=== PATIENT | male | born 1960 | race Two or more races ===

== ENCOUNTER 2016-08-27 08:57 | Emergency (ER) | payer OTHER ==
--- NOTE | 2016-08-27 09:47 | ER Document Report ---
ED General - General Chief Complaint: Rash Stated Complaint: RASH Time seen by provider: 09:42 Mode of Arrival: Ambulatory Information source: Patient, Relative Notes: 56-year-old male who reports developing some itching on his feet about 4 days ago and then last night began breaking out in an itching red rash all over his body. He family recall no new foods soaked detergent shampoo exposure to any chemicals new close report patient has not been bitten by anything. They recall no prior episodes like this. They report that his physician [facility] recently reduced his level thyroxine dose but he has had no other medication changes. The patient denies pain anywhere complains only of itching all over now. One point he was telling family that he felt as if he was having difficulty breathing but he denies that now. He denies fever, chills, nausea, vomiting, cough, shortness of breath, earache, sore throat, or swelling to extremities. Physical Exam: General: Alert, appears well. HEENT: Normocephalic. Atraumatic. PERRLA. Extraocular movements intact. Oropharynx clear. No lesions noted no stridor horses drooling Neck: Supple. Non-tender. No JVD no adenopathy Respiratory: No respiratory distress. Clear and equal breath sounds bilaterally. Cardiovascular: Regular rate and rhythm. Abdominal: Normal Inspection. Soft, non-tender. No distension. Normal Bowel Sounds. Back: Non-tender. No deformity or step off. Extremities: Moves all four extremities. Upper extremities: Normal inspection. Non-tender. Normal color. Normal ROM. Normal temperature. Lower extremities: Normal inspection. Non-tender. No edema. Normal color. Normal ROM. Normal temperature. Neurological: Speech clear mentation normal Psychological: Normal affect. Normal Mood. Skin: Warm. Dry. Patient has diffuse hives over her arms and legs chest abdomen and back. There are no petechiae or purpura. There is no new Kolsky sign. TRAVEL OUTSIDE OF THE [place] IN LAST 30 DAYS: No - Related Data Allergies/Adverse Reactions: No Known Allergies Allergy (Verified 08/27/16 09:14) Past Medical History - Social History Smoking Status: Never Smoker Chew tobacco use (# tins/day): No Frequency of alcohol use: None Drug Abuse: None Family History: Reviewed & Not Pertinent Patient has suicidal ideation: No Patient has homicidal ideation: No - Past Medical History Cardiac Medical History: Reports: Hx Hypertension Endocrine Medical History: Reports: Hx Diabetes Mellitus Type 2, Hx Hypothyroidism Renal/ Medical History: Denies: Hx Peritoneal Dialysis Review of Systems - Review of Systems Constitutional: denies: Chills, Fever EENT: denies: Ear pain, Throat pain Cardiovascular: denies: Chest pain Respiratory: denies: Cough Gastrointestinal: denies: Abdominal pain, Nausea, Vomiting Genitourinary: denies: Burning, Dysuria Musculoskeletal: denies: Back pain Skin: Rash Hematologic/Lymphatic: denies: Swollen glands Neurological/Psychological: denies: Weakness, Numbness Physical Exam - Vital signs Vitals: Temp Pulse Resp BP Pulse Ox 97.5 F 84 18 104/58 L 99 08/27/16 09:07 08/27/16 09:07 08/27/16 09:07 08/27/16 09:07 08/27/16 09:07 Course - Re-evaluation Re-evalutation: 08/27/16 09:45 Restasis consistent with a systemic allergic reaction of history does not provide any specific etiology. Patient we prescribe Vistaril and Medrol Dosepak and instruct take Pepcid 20 mg twice a day [id number]. Family members have a inker and opaquer in [place] and asked them to follow up with dermatology as well as follow-up with this primary care provider [facility] he has no airway compromise or hemodynamic instability - Vital Signs Vital signs: Temp Pulse Resp BP Pulse Ox 97.5 F 84 18 104/58 L 99 08/27/16 09:07 08/27/16 09:07 08/27/16 09:07 08/27/16 09:07 08/27/16 09:07 Discharge - Discharge Clinical Impression: Allergic reaction Qualifiers: Encounter type: initial encounter Qualified Code(s): T78.40XA - Allergy, unspecified, initial encounter Condition: Stable Disposition: HOME, SELF-CARE Additional Instructions: Acute Allergic Reaction Your symptoms are due to an allergic reaction. Allergy can cause hives, swelling of the hands, feet, and face, hoarseness, and difficulty swallowing or breathing. It may be due to exposure to medication, animal dander, foods, infection, or insect bites. Medication is a common cause, even when prior use of this same medication caused no problems. Acute treatment may include adrenalin and antihistamines. Usually, the specific allergic agent can't be identified unless repeated episodes occur. Home treatment includes the following: (1) Stop any suspicious medications. This will be discussed with you. (3) You may also use cimetidine (Tagamet), ranitidine (Zantac), or famotidine (Pepcid) every four hours (4) Avoid aspirin until the hives completely disappear. (5) Avoid hot bahs or showers until the hives are completely gone. Call the doctor if faintness, difficulty swallowing, tightness in the chest, or wheezing occurs. Prescriptions: Hydroxyzine Pamoate [Vistaril 25 mg Capsule] 25 mg PO TID PRN #30 capsule PRN Reason: Itching Methylprednisolone [Medrol Dosepack (4 mg/Tab) 21 Tab/Dosepak] 4 mg PO ASDIR PRN #21 [id number] PRN Reason: Referrals: [facility] [Provider Group] - Follow up in 3-5 days
[2016-08-27] MEDS: NORMAL SALINE 1000 ML 1,000 ML IV PRN ×2 (10:40→10:50)
[2016-08-27] MEDS ORDERED: HYDROCORTISONE SOD SUCCINATE INJ/PF 100 MG/2 ML SDV IV ONE (10:45)
[2016-08-27 10:56] LABS: ABSOLUTE EOSINOPHILS # (AUTO) 0.1 10^3/uL (0.0-0.6); ABSOLUTE MONOCYTES (AUTO) 0.2 10^3/uL (0.1-1.4); ABSOLUTE NEUT (AUTO) 5.6 10^3/uL (1.7-8.2); BASOPHILS % (AUTO) 0.1 % (0-2); EOSINOPHILS % (AUTO) 0.6 % (0-6); HEMOGLOBIN 16.6 g/dL (13.5-17.0); HGB HCT DIFFERENCE -1.2; LYMPHOCYTES % (AUTO) 34.1 % (13-45); MEAN CORPUSCULAR HEMOGLOBIN 28.2 pg (27.0-33.4); MEAN CORPUSCULAR HGB CONC 32.5 g/dL (32.0-36.0); MEAN CORPUSCULAR VOLUME 87 fl (80-97); MONOCYTES % (AUTO) 2.4 % (3-13); RED BLOOD COUNT 5.88 10^6/uL (4.35-5.55); RED CELL DISTRIBUTION WIDTH 13.8 % (11.5-14.0); SEGMENTED NEUTROPHILS % (AUTO) 62.8 % (42-78); WHITE BLOOD COUNT 8.9 10^3/uL (4.0-10.5)
[2016-08-27 11:16] LABS: ALANINE AMINOTRANSFERASE 36 U/L (21-72); ALKALINE PHOSPHATASE 64 U/L (38-126); ANION GAP 12 (5-19); ASPARTATE AMINO TRANSFERASE 27 U/L (17-59); BILIRUBIN,TOTAL 0.9 mg/dL (0.2-1.3); BLOOD UREA NITROGEN 14 mg/dL (7-20); CARBON DIOXIDE 28 mmol/L (22-30); CHLORIDE 94 mmol/L (98-107); CREATINE KINASE 187 U/L (55-170); CREATININE RESULT 1.22 mg/dL (0.52-1.25); GLUCOSE 98 mg/dL (75-110); SODIUM 133.8 mmol/L (137-145); TOTAL PROTEIN 7.5 g/dL (6.3-8.2)
[2016-08-27 11:28] LABS: CREATINE KINASE MB 3.32 ng/mL (<4.55); TROPONIN I 0.012 ng/mL
[2016-08-27 11:50] LABS: ERYTHROCYTE SEDIMENTATION RATE 10 mm/hr (0-20)
--- NOTE | 2016-08-27 12:54 | EKG REPORT ---
SEVERITY:- NORMAL ECG - SINUS RHYTHM : Confirmed by: Jyoti Brown MD 27-Aug-2016 12:53:34
[2016-08-27] MEDS ORDERED: HYDROXYZINE PAMOATE 25 MG CAPSULE PO ONE (13:12)
[2016-08-27 13:28] LABS: APPEARANCE,URINE CLEAR; BILIRUBIN,URINE NEGATIVE (NEGATIVE); GLUCOSE, URINE NEGATIVE (NEGATIVE); KETONES,URINE NEGATIVE (NEGATIVE); LEUKOCYTE ESTERASE,URINE NEGATIVE (NEGATIVE); NITRITE,URINE NEGATIVE (NEGATIVE); PROTEIN,URINE NEGATIVE (NEGATIVE); URINE SPECIFIC GRAVITY 1.003; UROBILINOGEN,URINE NEGATIVE mg/dL (<2.0)
[2016-08-27] MEDS ORDERED: FAMOTIDINE INJ/PF 20 MG/2 ML SDV IV ONE (13:46)
[2016-08-27 15:44] VITALS: BP 120/74
== END 2016-08-27 15:40 | disposition home or self-care (01) ==
LOC: ER 08:57
DX: T78.40XA Allergy, unspecified, initial encounter (principal); I95.9 Hypotension, unspecified; R21 Rash and other nonspecific skin eruption; I10 Essential (primary) hypertension; E11.9 Type 2 diabetes mellitus without complications; E03.9 Hypothyroidism, unspecified
CPT/HCPCS: 93005; 99285; 96361; 96374; 96375; 36415; 87040; 87086; 82553; 82550; 85025; 85652; 80053; 81001; 84484; 71010; 70450; 93010; J1720; J7030; S0028